=== PATIENT | female | born 1995 | race Caucasian/White ===

== ENCOUNTER 2021-10-05 09:17 | Emergency (ER) | payer OTHER ==
[~2021-10-05] VITALS: Ht 167.6 cm; Wt 65.3 kg
[2021-10-05 13:36] LABS: GC DNA AMPLIFICATION NEGATIVE (NEGATIVE)
[2021-10-05] MEDS ORDERED: NITR1CAP11 PO (13:45)
[2021-10-05 14:22] VITALS: BP 104/72
[2021-10-05 14:27] LABS: HEPATITIS B SURFACE ANTIBODY NEGATIVE (POSITIVE); HEPATITIS B SURFACE ANTIGEN NEGATIVE (NEGATIVE); HEPATITIS C VIRUS ABY INDEX 0.2 INDEX (<0.8); HIV 1&2 SCREEN CENTAUR NEGATIVE (NEGATIVE)
== END 2021-10-05 14:23 | disposition home or self-care (01) ==
LOC: M ED 09:17
DX: N76.0 Acute vaginitis (principal); N39.0 Urinary tract infection, site not specified; R30.0 Dysuria; Z86.19 Personal history of other infectious and parasitic diseases; Z87.448 Personal history of other diseases of urinary system

== ENCOUNTER → 2022-02-06 | Outpatient (REF) ==
[~2022-02-06] MED LIST: NITR1CAP11 PO
== END ==
LOC: M EMP 10:03
PROVIDERS: ATTEND Family Medicine
DX: Z00.00 Encounter for general adult medical examination without abnormal findings (principal)

== ENCOUNTER → 2022-02-28 | Outpatient (REF) | LOC: M EMP 09:56 | PROVIDERS: ATTEND Family Medicine | DX: Z11.52 Encounter for screening for COVID-19 (principal) ==